=== PATIENT | female | born 1935 | race Caucasian/White ===

== ENCOUNTER → 2017-11-12 | Outpatient (CLI) | payer MEDICARE ==
--- NOTE | 2017-11-17 13:59 | MM ---
Reason for exam: screening (asymptomatic). Last mammogram was performed 1 year and 6 months ago. History: Patient is postmenopausal. Family history of breast cancer in sister at age 50 and breast cancer in mother at age 54. Benign stereotactic core biopsy of the right breast, October 07, 2002. Physical Findings: A clinical breast exam by your physician is recommended on an annual basis and results should be correlated with mammographic findings. MG 3D Screening Mammo W/Cad Bilateral CC and MLO view(s) were taken. Prior study comparison: May 08, 2016, bilateral MG 3d screening mammo w/cad. April 30, 2015, bilateral MG screening mammo w CAD. There are scattered fibroglandular densities. There is a stable subcentimeter left upper outer quadrant mass. Benign calcifications bilaterally. No suspicious abnormality. Right biopsy marker noted. ASSESSMENT: Benign, BI-RAD 2 RECOMMENDATION: Routine screening mammogram of both breasts in 1 year.
== END | disposition home or self-care (01) ==
LOC: RADMAMWWP 09:07
PROVIDERS: ATTEND Family Medicine
DX: Z12.31 Encounter for screening mammogram for malignant neoplasm of breast (principal); Z78.0 Asymptomatic menopausal state
CPT/HCPCS: 77063; 77067

== ENCOUNTER → 2018-11-23 | Outpatient (CLI) | payer MEDICARE ==
--- NOTE | 2018-11-24 10:23 | BD ---
EXAMINATION TYPE: Axial Bone Density DATE OF EXAM: 11/23/2018 COMPARISON: 2003 CLINICAL HISTORY: Postmenopausal female. Osteoporosis screening. Height: 59 inches Weight: 188 FRAX RISK QUESTIONS: Alcohol (3 or more units per day): no Family History (Parent hip fracture): no Glucocorticoids (More than 3mos): no (Ex: prednisone, prednisolone, methylprednisolone, dexamethasone, and hydrocortisone). History of Fracture in Adulthood: no Secondary Osteoporosis: 1. Type 1 Diabetes: no 2. Hyperthyroidism: no 3. Menopause before 45: no 4. Malnutrition: no 5. Chronic liver disease: no Rheumatoid Arthritis: no Current Tobacco Use: no RISK FACTORS HISTORY OF: Family History of Osteoporosis: no Active: yes Diet low in dairy products/other sources of calcium: no Postmenopausal woman: yes Take estrogen and/or progesterone medications: no Lost more than 2 inches in height since high school: unsure Frequent falls: no Poor Health: no Hyperparathyroidism: no Adrenal Insufficiency: no MEDICATIONS: Prednisone or other steroids: no Osteoporosis Medications:not now Which medication: Fosamax How Long: unsure Additional Medications: blood pressure med, cholesterol med Additional History: EXAM MEASUREMENTS: Bone mineral densitometry was performed using the [employer] System. Bone mineral density as measured about the Lumbar spine is: ----- L1-L4(G/cm2): 1.618 T Score Values are as follows: ----- L2: 2.9 ----- L3: 5.5 ----- L4: 3.4 ----- L1-L4: 3.7 Bone mineral density has: Increased 27.9% since study of: 11/16/2003 Bone mineral density about the R hip (g/cm2): 0.913 Bone mineral density about the L hip (g/cm2): 0.894 T Score values are as follows: -----R Neck: -0.9 -----L Neck: -1.0 -----R Total: 0.4 -----L Total: 0.5 Bone mineral density has: Increased 2.5% since study of: 11/16/2003 IMPRESSION: Normal (Values between +1 and -1 indicate normal bone mass). Values approach osteopenia. Consider rep eating this study in 5 years or sooner if there is some new clinical indication. NOTE: T-SCORE=SD OF THE YOUNG ADULT MEAN.
--- NOTE | 2018-11-24 12:14 | MM ---
Reason for exam: screening (asymptomatic). Last mammogram was performed 1 year ago. History: Patient is postmenopausal. Family history of breast cancer in sister at age 50 and breast cancer in mother at age 54. Benign stereotactic core biopsy of the right breast, October 07, 2002. Physical Findings: A clinical breast exam by your physician is recommended on an annual basis and results should be correlated with mammographic findings. MG Screening Mammo w CAD Bilateral CC, MLO, and XCCL view(s) were taken. Prior study comparison: November 12, 2017, bilateral MG 3d screening mammo w/cad. May 08, 2016, bilateral MG 3d screening mammo w/cad. Finding: There are typically benign round calcifications in both breasts. Previous mammotome biopsy in the right breast. There is no discrete abnormality. ASSESSMENT: Benign, BI-RAD 2 RECOMMENDATION: Routine screening mammogram of both breasts in 1 year.
== END | disposition home or self-care (01) ==
LOC: RADMAMWWP 08:55
PROVIDERS: ATTEND Family Medicine
DX: Z12.31 Encounter for screening mammogram for malignant neoplasm of breast (principal); Z13.820 Encounter for screening for osteoporosis; Z78.0 Asymptomatic menopausal state
CPT/HCPCS: 77067; 77080

== ENCOUNTER 2019-07-04 13:06 | Emergency (ER) | payer MEDICARE ==
[2019-07-04 13:13] VITALS: RESP 18; TEMP 97.8
[2019-07-04] MEDS ORDERED: SODIUM CHLORIDE 0.9% 1,000 ML IV STA (13:48)
--- NOTE | 2019-07-04 13:50 | ED ---
General Adult HPI - General Chief complaint: Recheck/Abnormal Lab/Rx Stated complaint: hypertensive Time Seen by Provider: 07/04/19 13:16 Source: patient, RN notes reviewed Mode of arrival: ambulatory Limitations: no limitations - History of Present Illness Initial comments: Patient is a pleasant 84-year-old female presenting to the emergency department as a transfer from urgent care. Patient went to urgent care for nasal congestion and was found to have blood pressure 202/102. Patient states she does have a history of hypertension and has been taking her medications. No chest pain or dyspnea. No headache or weakness or confusion. Patient has had a cough several days ago however that resolved. Patient still has congestion in the nasal region. No fevers. - Related Data Home Medications Medication Instructions Recorded Confirmed Hydrochlorothiazide [Hydrodiuril] 25 mg PO DAILY 02/14/14 07/04/19 Meloxicam [Mobic] 7.5 mg PO DAILY 02/14/14 07/04/19 Quinapril HCl 40 mg PO DAILY 02/14/14 07/04/19 Simvastatin [Zocor] 40 mg PO HS 02/14/14 07/04/19 Atenolol [Tenormin] 50 mg PO BID 07/04/19 07/04/19 Calcium Carbonate/Vitamin D3 1 tab PO DAILY 07/04/19 07/04/19 [Calcium 600-Vit D3 800 Caplet] Ewing-3 Fatty Acids/Fish Oil [Fish 1 cap PO DAILY 07/04/19 07/04/19 Oil 1,000 mg Softgel] Vit C/E/Zn/Coppr/Lutein/Zeaxan 1 cap PO BID 07/04/19 07/04/19 [Preservision Areds 2 Softgel] Allergies Allergy/AdvReac Type Severity Reaction Status Date / Time No Known Allergies Allergy Verified 07/04/19 13:09 Review of Systems ROS Statement: Those systems with pertinent positive or pertinent negative responses have been documented in the HPI. ROS Other: All systems not noted in ROS Statement are negative. Constitutional: Denies: fever Eyes: Denies: eye pain ENT: Reports: congestion. Denies: throat pain Respiratory: Reports: as per HPI Cardiovascular: Denies: chest pain Endocrine: Denies: fatigue Gastrointestinal: Denies: abdominal pain Genitourinary: Denies: dysuria Musculoskeletal: Denies: back pain Skin: Denies: rash Neurological: Denies: headache, weakness, confusion Past Medical History Past Medical History: Hearing Disorder / Deafness, Hyperlipidemia, Hypertension, Osteoarthritis (OA) Additional Past Medical History / Comment(s): HX OF FX LEFT FOOT. History of Any Multi-Drug Resistant Organisms: None Reported Past Surgical History: No Surgical Hx Reported Additional Past Surgical History / Comment(s): COLONOSCOPY. RIGHT EAR PATCH. Past Anesthesia/Blood Transfusion Reactions: No Reported Reaction Past Psychological History: No Psychological Hx Reported Smoking Status: Never smoker Past Alcohol Use History: Occasional Past Drug Use History: None Reported - Past Family History Mother Family Medical History: Cancer Additional Family Medical History / Comment(s): BREAST CA Father Family Medical History: Cancer General Exam Limitations: no limitations General appearance: alert, in no apparent distress Head exam: Present: normocephalic Eye exam: Present: normal appearance, PERRL ENT exam: Present: normal oropharynx Neck exam: Present: normal inspection. Absent: tenderness, meningismus Respiratory exam: Present: normal lung sounds bilaterally Cardiovascular Exam: Present: regular rate, normal rhythm GI/Abdominal exam: Present: soft. Absent: tenderness Extremities exam: Present: normal inspection Neurological exam: Present: alert, CN II-XII intact. Absent: motor sensory deficit Expanded Neurological exam: Present: protecting the airway Speech: Present: fluid speech Cranial nerves: EOM's Intact: Normal Motor strength exam: RUE: 5, LUE: 5, RLE: 5, LLE: 5 Eye Response: (4) open spontaneously Motor Response: (6) obeys commands Verbal Response: (5) oriented Psychiatric exam: Present: normal affect, normal mood Skin exam: Present: normal color Course Vital Signs 07/04/19 07/04/19 07/04/19 13:09 13:25 14:00 Temperature 97.8 F Pulse Rate 104 H 99 76 Respiratory 18 18 18 Rate Blood Pressure 210/106 165/103 169/92 O2 Sat by Pulse 97 97 96 Oximetry 07/04/19 14:50 Temperature Pulse Rate 88 Respiratory 18 Rate Blood Pressure 168/97 O2 Sat by Pulse 92 L Oximetry EKG Findings - EKG Comments: EKG Findings:: Normal sinus rhythm 75. WI 186. QRS 126. QT 408. QTC 45. Left axis. Left anterior fascicular block. LVH criteria. Nonspecific T waves. Medical Decision Making - Medical Decision Making Patient reevaluated and resting comfortably in bed. Repeat blood pressure 162/98. Patient states she believes her doctor took her off her hydrochlorothiazide and will be given a dose at this time. Patient is advised to restart this until she follows up with her doctor. - Lab Data Result diagrams: 07/04/19 13:45 07/04/19 13:45 Lab Results 07/04/19 07/04/19 07/04/19 Range/Units 13:45 13:45 15:00 WBC 11.4 H (3.8-10.6) k/uL RBC 5.01 (3.80-5.40) m/uL Hgb 13.8 (11.4-16.0) gm/dL Hct 43.8 (34.0-46.0) % MCV 87.4 (80.0-100.0) fL MCH 27.5 (25.0-35.0) pg MCHC 31.5 (31.0-37.0) g/dL RDW 12.7 (11.5-15.5) % Plt Count 335 (150-450) k/uL Neutrophils % 79 % Lymphocytes % 12 % Monocytes % 5 % Eosinophils % 2 % Basophils % 1 % Neutrophils # 9.1 H (1.3-7.7) k/uL Lymphocytes # 1.4 (1.0-4.8) k/uL Monocytes # 0.5 (0-1.0) k/uL Eosinophils # 0.2 (0-0.7) k/uL Basophils # 0.1 (0-0.2) k/uL Sodium 144 (137-145) mmol/L Potassium 3.7 (3.5-5.1) mmol/L Chloride 108 H (98-107) mmol/L Carbon Dioxide 30 (22-30) mmol/L Anion Gap 6 mmol/L BUN 17 (7-17) mg/dL Creatinine 0.80 (0.52-1.04) mg/dL Est GFR (CKD-EPI)AfAm 78 (>60 ml/min/1.73 sqM) Est GFR (CKD-EPI)NonAf 68 (>60 ml/min/1.73 sqM) Glucose 135 H (74-99) mg/dL Calcium 10.0 (8.4-10.2) mg/dL Total Bilirubin 0.4 (0.2-1.3) mg/dL AST 31 (14-36) U/L ALT 19 (4-34) U/L Alkaline Phosphatase 100 (38-126) U/L Total Protein 7.2 (6.3-8.2) g/dL Albumin 4.1 (3.5-5.0) g/dL Urine Color Light Yellow Urine Appearance Clear (Clear) Urine pH 7.0 (5.0-8.0) Ur Specific [place] 1.008 (1.001-1.035) Urine Protein 1+ H (Negative) Urine Glucose (UA) Negative (Negative) Urine Ketones Negative (Negative) Urine Blood Negative (Negative) Urine Nitrite Negative (Negative) Urine Bilirubin Negative (Negative) Urine Urobilinogen <2.0 (<2.0) mg/dL Ur Leukocyte Esterase Negative (Negative) Urine RBC 1 (0-5) /hpf Urine WBC <1 (0-5) /hpf Urine Mucus Rare H (None) /hpf - Radiology Data Radiology results: image reviewed (Chest x-ray shows some atelectasis, rotated exam) Disposition Clinical Impression: Hypertension Disposition: HOME SELF-CARE Condition: Stable Instructions (If sedation given, give patient instructions): Hypertension (ED) Additional Instructions: Please do follow-up with your primary care physician in the next day or 2 for recheck. Return for uncontrolled blood pressure, chest pain, weakness or confusion, headaches, worsening symptoms or other concerns. Please resume your hydrochlorothiazide. Is patient prescribed a controlled substance at d/c from ED?: No Referrals: Huong Glasgow MD [Primary Care Provider] - 1-2 days Alisha Lo III, MD [STAFF PHYSICIAN] - 1-2 days Time of Disposition: 15:42
[2019-07-04] MEDS ORDERED: hydrALAZINE HCL 20 MG/ML 1 ML VIAL IVP STA (14:00)
[2019-07-04] MEDS: HYDROCHLOROTHIAZIDE 25 MG TAB PO STA ×2 (14:07→15:40)
[2019-07-04 14:18] LABS: Basophils # (A) 0.1 k/uL (0-0.2); Basophils % (A) 1 %; Eosinophils # (A) 0.2 k/uL (0-0.7); Eosinophils % (A) 2 %; HCT 43.8 % (34.0-46.0); HGB 13.8 gm/dL (11.4-16.0); Lymphocytes # (A) 1.4 k/uL (1.0-4.8); Lymphocytes % (A) 12 %; MCH 27.5 pg (25.0-35.0); MCHC 31.5 g/dL (31.0-37.0); MCV 87.4 fL (80.0-100.0); Mean Platelet Volume 7.1; Monocytes # (A) 0.5 k/uL (0-1.0); Monocytes % (A) 5 %; Neutrophils # (A) 9.1 k/uL (1.3-7.7); Neutrophils % (A) 79 %; Platelet Count 335 k/uL (150-450); RBC 5.01 m/uL (3.80-5.40); RDW 12.7 % (11.5-15.5); WBC 11.4 k/uL (3.8-10.6)
[2019-07-04 14:28] LABS: Albumin 4.1 g/dL (3.5-5.0); Potassium 3.7 mmol/L (3.5-5.1); Total Bilirubin 0.4 mg/dL (0.2-1.3); Total Protein 7.2 g/dL (6.3-8.2)
--- NOTE | 2019-07-04 14:31 | XR ---
EXAMINATION TYPE: XR chest 2V DATE OF EXAM: 07/04/2019 COMPARISON: NONE HISTORY: Hypertension, cough and congestion TECHNIQUE: Frontal and lateral views of the chest are obtained. FINDINGS: Patient is rotated. There is no focal air space opacity, pleural effusion, or pneumothorax seen. The aorta is dense. Thoracic and lumbar spondylosis is present. There is eventration of the ri ght hemidiaphragm. Some linear densities at the lung bases may reflect atelectasis or scarring. The c ardiac silhouette size is within normal limits. The osseous structures are intact. IMPRESSION: Some minimal basilar atelectasis or scarring. Rotated exam. Follow-up as indicated.
[2019-07-04 15:23] LABS: Appearance,Urine Clear (Clear); Bilirubin,Urine Negative (Negative); Blood,Urine Negative (Negative); Color,Urine Light Yellow; Glucose,Urine (UA) Negative (Negative); Ketones,Urine Negative (Negative); Leukocyte Esterase,Urine Negative (Negative); Mucus,Urine Rare /hpf; Nitrite,Urine Negative (Negative); Protein,Urine 1+ (Negative); RBC,Urine 1 /hpf (0-5); Specific Gravity,Urine 1.008 (1.001-1.035); Urobilinogen,Urine <2.0 mg/dL (<2.0); WBC,Urine <1 /hpf (0-5)
[2019-07-04] MEDS ORDERED: HYDROCHLOROTHIAZIDE 25 MG TAB PO STA (15:41)
[2019-07-04 15:50] VITALS: BP 161/98; PULSE 93
== END 2019-07-04 15:50 | disposition home or self-care (01) ==
LOC: EC 13:06
DX: I10 Essential (primary) hypertension (principal); R09.81 Nasal congestion; E78.5 Hyperlipidemia, unspecified; Z79.1 Long term (current) use of non-steroidal anti-inflammatories (NSAID); Z79.899 Other long term (current) drug therapy
CPT/HCPCS: 36415; 93005; 80053; 85025; 81001; 71046; 99284; 96374; 96361 ×2; J0360

== ENCOUNTER → 2020-12-13 | Outpatient (CLI) | payer MEDICARE ==
--- NOTE | 2020-12-17 08:51 | MM ---
Reason for exam: screening (asymptomatic). Last mammogram was performed 2 years and 1 month ago. History: Patient is postmenopausal. Family history of breast cancer in sister at age 50 and breast cancer in mother at age 54. Benign stereotactic core biopsy of the right breast, October 07, 2002. Physical Findings: A clinical breast exam by your physician is recommended on an annual basis and results should be correlated with mammographic findings. MG 3D Screening Mammo W/Cad Bilateral CC and MLO view(s) were taken. Prior study comparison: November 23, 2018, bilateral MG screening mammo w CAD. November 12, 2017, bilateral MG 3d screening mammo w/cad. There are scattered fibroglandular densities. Previous mammotome biopsy in the right breast. No significant changes when compared with prior studies. ASSESSMENT: Benign, BI-RAD 2 RECOMMENDATION: Routine screening mammogram of both breasts in 1 year.
== END | disposition home or self-care (01) ==
LOC: RADMAMWWP 11:44
PROVIDERS: ATTEND Family Medicine
DX: Z12.31 Encounter for screening mammogram for malignant neoplasm of breast (principal); Z80.3 Family history of malignant neoplasm of breast
CPT/HCPCS: 77063; 77067

== ENCOUNTER → 2022-05-26 | Outpatient (CLI) | payer MEDICARE ==
--- NOTE | 2022-05-26 10:51 | CT ---
EXAMINATION TYPE: CT iac wo con DATE OF EXAM: 05/26/2022 COMPARISON: HISTORY: Tinnitus of left ear. CT DLP: 142.7mGycm Automated exposure control for dose reduction was used. FINDINGS: The external auditory canals are patent bilaterally. Mastoid air cells hypoaeration bilate rally suggestive of chronic bilateral mastoiditis. The middle ear ossicles are symmetric and unremarkable. There is evidence of surrounding soft tissue density on the left. Additionally is suggestion of subtle scutal erosion on the left. Differential d iagnosis would include Cholesteatoma. Middle ear effusion or granulation tissue also the differential diagnosis. The scutum is preserved on the right. The cochlea and the semicircular canals are symmetric and unremarkable. Vestibular aqueduct and inte rnal carotid canal appear unremarkable. Temporomandibular joints are maintained bilaterally. Mild m ucosal thickening involving sphenoid sinus compatible with mild chronic sinusitis. IMPRESSION: 1. Abnormal soft tissue attenuation in the middle ear surrounding the ossicles was suggestion of eros ion of this dome suspicious for cholesteatoma. Other considerations would include chronic middle ear infection with granulation tissue or middle ear effusion. 2. Hypoaeration in the bilateral mastoid air cells compatible with chronic mastoiditis.
== END | disposition home or self-care (01) ==
LOC: RADCTMAIN 09:36
PROVIDERS: ATTEND Otolaryngology
DX: H93.8X2 Other specified disorders of left ear (principal); H66.92 Otitis media, unspecified, left ear
CPT/HCPCS: 70480

== ENCOUNTER → 2022-07-15 | Outpatient (CLI) | payer MEDICARE ==
[2022-07-15 18:31] LABS: African American GFR (CKD) 45.4 (60.0-200.0); Anion Gap 12.8 mmol/L (10.00-18.00); BUN/Creat Ratio 18.7 Ratio (12.00-20.00); Carbon Dioxide 24.5 mmol/L (20.0-27.5); Non-African American GFR(CKD) 39.1 (60.0-200.0); Potassium 4.7 mmol/L (3.5-5.5)
== END | disposition home or self-care (01) ==
LOC: LABWHC1 11:21
PROVIDERS: ATTEND Internal Medicine
DX: I50.32 Chronic diastolic (congestive) heart failure (principal)
CPT/HCPCS: 36415; 80048